=== PATIENT | female | born 1975 | race African-American/Black ===

== ENCOUNTER 2024-07-10 17:21 | Emergency (ER) | payer MEDICARE, MEDICAID ==
[~2024-07-10] VITALS: Ht 165.1 cm; Wt 95.0 kg
[2024-07-10 17:43] VITALS: O2SAT 100
[2024-07-10] MEDS: KETOROLAC 15MG/ML VIAL IM ONE (20:37)
[2024-07-10] MEDS: LIDOCAINE 5% PATCH TOP SCH (20:37)
[2024-07-10] MEDS ORDERED: LIDO700A30 TP (21:09)
[2024-07-10] MEDS ORDERED: CYCL5TAB3 MT (21:09)
[2024-07-10 21:45] VITALS: BP 159/63; PULSE 79; RESP 18; TEMP 36.78072; O2SAT 99
== END 2024-07-10 21:49 | disposition home or self-care (01) ==
LOC: ER 17:21
DX: M54.2 Cervicalgia (principal); R51.9 Headache, unspecified; F12.90 Cannabis use, unspecified, uncomplicated; E11.9 Type 2 diabetes mellitus without complications; I10 Essential (primary) hypertension
CPT/HCPCS: 99285; 70450; 72125; 96372; J1885